=== PATIENT | female | born 1940 | race Caucasian/White ===

== ENCOUNTER 2017-01-21 22:46 | Inpatient (IN) | payer MEDICARE, OTHER ==
[~2017-01-21 22:46] MED LIST: ACETAMINOPHEN325 MG PO; BACTRIM DS TABL1 TAB PO; BUMETANIDE0.5 MG PO; CELEXA20 MG PO; ELIQUIS2.5 MG PO; GLIPIZIDE-METFO1 TA5 PO; GLUCOPHAGE500 MG PO; HYDROCODON-ACE1 EAC7 PO; LISINOPRIL5 MG PO; MIRALAX17 GM PO; MIRAPEX0.5 MG PO; NEURONTIN 300300 MG PO; SALINE NASAL SP45 ML NS; TENORMIN25 MG PO; VANCOMYCIN 1 GM/1 G1 IV
[2017-01-22 01:53] VITALS: BP 209/90; Wt 109.1 kg
[2017-01-22 02:42] LABS: APPEARANCE CLEAR (CLEAR); BILIRUBIN NEGATIVE (NEGATIVE); COLOR STRAW (YELLOW); GLUCOSE NEGATIVE (NEGATIVE); KETONE NEGATIVE (NEGATIVE); LEUKOCYTE ESTERASE NEGATIVE (NEGATIVE); NITRITE NEGATIVE (NEGATIVE); PROTEIN NEGATIVE (NEGATIVE); SPECIFIC GRAVITY 1.005 (1.005-1.020); UROBILINOGEN NORMAL (NORMAL)
--- NOTE | 2017-01-22 06:52 | NUR ---
NEW ADMIT FROM [facility] TO DOCTOR العلي FOR ALTERED MENTAL STATUS. FAMILY STAES MANIC BEHAVIORS AND TALKING IN TONGUE AT TIMES. SPOKE TO PATIENT VIA PHONE AND AGREED TO SIGN INTO INTERMEDIATE. RECEIVED VIA EMS. FAMILY AWARE OF ADMIT. CALM AND COOPERATIVE AT ADMIT. ASSIST TO TRANSFERE TO BED. REMAINS CALM AND COOPERATIVE
[2017-01-22 07:09] LABS: BASOPHILS 0.5 % (0-2); EOSINOPHILS 3.4 % (0-7); HEMATOCRIT 40.6 % (36.0-48.0); HEMOGLOBIN 13.4 g/dL (12-16); IMMATURE GRANULOCYTES 0.6 % (0-5); LYMPHOCYTES 20.1 % (15-50); MCH 31.2 pg (26.0-34.0); MCV 94.6 fL (80.0-100.0); MEAN PLATELET VOLUME 10.5 fL (7.4-10.4); MONOCYTES 9.7 % (2-11); NEUTROPHILS 65.7 % (40-80); RBC 4.29 10x6/uL (4.00-5.40); RDW 14.2 % (11.5-14.5); WBC 10.8 10x3/uL (4.8-10.8)
[2017-01-22 07:17] LABS: HEMOGLOBIN A1C 6.8 % (4.8-6.0)
[2017-01-22 07:26] LABS: PLATELET COUNT 252 10x3/uL (130-400)
[2017-01-22 07:31] LABS: ALBUMIN 3.3 g/dL (3.4-5.0); ANION GAP 10.3 mmol/L (8-16); BILIRUBIN - TOTAL 0.58 mg/dL (0.2-1.3); CALCIUM 9.8 mg/dL (8.5-10.1); CARBON DIOXIDE 29.1 mmol/L (21.0-32.0); CHOL - HDL RATIO 5.4 ratio (2.3-4.1); LDL-HDL RATIO 3.2 ratio (1.5-3.5); POTASSIUM - SERUM 3.4 mmol/L (3.5-5.1); PROTEIN - SERUM 7.2 g/dL (6.4-8.2); THYROID STIMULATING HORMONE 5.08 uIU/mL (0.36-3.74)
--- NOTE | 2017-01-22 09:30 | NUR ---
ORIENTED X 3 SITTING IN HALLWAY IN W/C. CALM AND COOPERATIVE WITH HER ASSESSMENT. DR. MANZO ROUNDING AND TALKING WITH PATIENT. MONITOR FOR SAFETY AND FALL PRECAUTIONS. WILL CONTINUE WITH PLAN OF CARE.
[2017-01-22 09:59] VITALS: BP 191/69
--- NOTE | 2017-01-22 20:57 | NUR ---
RECEIVED IN HALLWAY. SITTING IN WHEELCHAIR. ARGUMENTATIVE WITH STAFF. CALM AND COOPERATIVE WITH STAFF AND ASSESSMENT. ALERT AND ORIENTED. ATTENTION SEEKING. REDIRECT AND REORIENT NEEDED. RESTING IN BED EYES OPEN AT THIS TIME. CONTINUE PLAN OF CARE
[2017-01-23 06:16] LABS: VITAMIN D 25 HYDROXY 19.7 ng/mL (30.0-100.0)
[2017-01-23 08:20] LABS: FOLATE (FOLIC ACID) - SERUM 19.4 ng/mL (>3.0); RAPID PLASMA REAGIN Non Reactive (Non Reactive)
[2017-01-23 09:00] VITALS: BP 176/72
[2017-01-23] MEDS ORDERED: TENORMIN25 MG PO (11:17)
[2017-01-23] MEDS ORDERED: LIPITOR10 MG PO (11:18)
[2017-01-23] MEDS ORDERED: DEPAKOTE SPRIN125 MG PO (11:18)
[2017-01-23] MEDS ORDERED: LISINOPRIL10 MG PO (11:18)
[2017-01-23] MEDS ORDERED: K-DUR20 MEQ PO (11:19)
[2017-01-23] MEDS ORDERED: DITROPAN X5 MG/BOTTL PO (11:19)
--- NOTE | 2017-01-23 11:41 | NUR ---
SW SPOKE WITH PT'S DTR, PANKAJ, ON PT DEMANDING TO LEAVE UNIT WHEN TALKING TO THE MD THIS MORNING. SW EXPLAINED THAT PT SIGNED HERSELF IN AND HAS THE RIGHT TO SIGN HERSELF OUT. SW SET PT UP WITH OUTPATIENT THERAPY REFERRAL. PT'S CAREGIVER ALISHA FUENTES WILL ASSIST HER IN DISCHARGE AND MEET HER AT PT'S HOUSE WHEN SW CONTACTS HER THAT DISCHARGE IS COMPLETE.
--- NOTE | 2017-01-23 13:05 | NUR ---
B) PATIENT HAS REQUESTED TO D/C TODAY TO HOME, FAXED D/C ORDER AND MED LIST TO DR FRENCH, CALLED MEDS TO [facility]. PATIENT REFUSES TO USE HER LEGS TO STAND OR TRANSFER, STAFF ARE USING THE SIT TO STAND AND JOZEF FOR HER. PATIENT HAS BEEN MANIPULATIVE AND DEMANDING WITH STAFF. I) PROVIDE PRESCRIBED MEDS. R) PATIENT IS COMPLIANT WITH MEDS AND UNIT MILIEU. PATIENT IS D/CING HOME. P) CONTINUE D/C PLAN.
--- NOTE | 2017-01-23 15:26 | NUR ---
PATIENT HAS D/C'D FROM THE UNIT, TAXI VOUCHER PROVIDED AND ADDRESS PROVIDED. JON SAM ASSISTED PATIENT TO THE TAXI. ALL BELONGINGS ON THE INVENTORY SHEET ACCOUNTED FOR.
== END 2017-01-23 15:29 | disposition home or self-care (01) | DRG 885 ==
LOC: UNDOADMIN 22:46 → D.PSYCH 22:46
PROVIDERS: ADMIT Psychiatry & Neurology Psychiatry
DX: F33.9 Major depressive disorder, recurrent, unspecified (principal); F41.9 Anxiety disorder, unspecified; I11.0 Hypertensive heart disease with heart failure; I50.9 Heart failure, unspecified; E11.40 Type 2 diabetes mellitus with diabetic neuropathy, unspecified; E78.4 Other hyperlipidemia; N32.81 Overactive bladder; R32 Unspecified urinary incontinence; E03.9 Hypothyroidism, unspecified; E66.9 Obesity, unspecified; G47.33 Obstructive sleep apnea (adult) (pediatric); G25.81 Restless legs syndrome; I25.10 Atherosclerotic heart disease of native coronary artery without angina pectoris; M81.0 Age-related osteoporosis without current pathological fracture

== ENCOUNTER 2017-05-01 18:19 | Observation (INO) | payer MEDICARE, OTHER ==
[~2017-05-01 18:19] MED LIST changes: +DEPAKOTE SPRIN125 MG PO; +DITROPAN X5 MG/BOTTL PO; +K-DUR20 MEQ PO; +LIPITOR10 MG PO; +LISINOPRIL10 MG PO
--- NOTE | 2017-05-02 03:47 | NUR ---
ARRIVED TO FLOOR VIA STRETCHER, ACCOMPANIED BY HOSPITAL STAFF. ATTEMPTED TO TRANSFER TO BED, PT REFUSED TO GET OUT OF BED. STATES SHE CAN NOT BEAR WEIGHT ON HER LEG. ORIENTED TO UNIT, CALL LIGHT IN REACH. WILL CONTINUE TO MONTIOR. SEE NURSE ASSESSMENT.
[2017-05-02 04:00] VITALS: BP 126/57
--- NOTE | 2017-05-02 06:38 | NUR ---
NO CHANGES FROM PREVIOUS ASSESSMENT, CALL LIGHT IN REACH
--- NOTE | 2017-05-02 07:41 | NUR ---
PT SITTING UP IN BED WAITING ON BREAKFAST DENIES NEEDS WILL CONT TO MONITOR
[2017-05-02 07:46] VITALS: BP 155/71
[2017-05-02 12:00] VITALS: BP 111/54
--- NOTE | 2017-05-02 13:53 | NUR ---
EXPLAINED SCD AND THEIR USE. PT REFUSES THEM FOR NOW BUT WANTS TO TRY THEM WHEN SHE GOES TO BED TONIGHT. EXPLAINED RISKS AND BENEFITS.
--- NOTE | 2017-05-02 14:12 | NUR ---
* Is the patient Alert and Oriented? Yes 0 * How many steps to enter\exit or inside your home? 0 0 * PCP Dr. Baird 0 * Pharmacy [facility] 0 * Preadmission Environment Home Alone 0 * ADLs Partial Dependent 0 * Partial ADLs (Assistance needed) Ambulation 0 * Equipment Wheelchair 0 * List name and contact numbers for known caregivers / representatives who currently or will assist patient after discharge: Josep Young [phone] 0 * Additional services required to return to the preadmission environment? Yes 0 * Can the patient safely return to the preadmission environment? Yes 0 * Has this patient been hospitalized within the prior 30 days at any hospital? No Patient Name: ANDREY STEIN Admission Status: ER Accout number: [id number] Admission Date: 05-02-2017 : 1941 Admission Diagnosis: Attending: CAROLANN COMER Current LOS: 1 Planned Disposition: Home with Home Health vs Inpatient Rehab Primary Insurance: MEDICARE A & B Discharge Planning Comments: CM met with patient to assess dc plans/needs. Patient states she lives alone but has become progressively weaker & would like to go to a SNF under her [facility] for therapy. Explained she does not qualify at this time. Discussed inpatient rehab options and home health services. She is interested in both. Order obtained for rehab prescreen. Reviewed list of local home health agencies - [facility] signed for [facility]. If patient is not accepted to rehab, referral will be sent to [facility]. Answered patient questions. CM will follow & assist as needed. Certified Medication Technician: Dilcia Lopez
[2017-05-02 16:11] VITALS: BP 157/70
[2017-05-02 16:34] LABS: BASOPHILS 0.3 % (0-2); EOSINOPHILS 5.4 % (0-7); HEMATOCRIT 40.2 % (36.0-48.0); HEMOGLOBIN 12.9 g/dL (12-16); IMMATURE GRANULOCYTES 0.8 % (0-5); LYMPHOCYTES 23.7 % (15-50); MCH 30.9 pg (26.0-34.0); MCHC 32.1 g/dL (31.0-37.0); MCV 96.2 fL (80.0-100.0); MEAN PLATELET VOLUME 10.9 fL (7.4-10.4); MONOCYTES 8.5 % (2-11); NEUTROPHILS 61.3 % (40-80); PLATELET COUNT 215 10x3/uL (130-400); RBC 4.18 10x6/uL (4.00-5.40); RDW 14.7 % (11.5-14.5); WBC 9.5 10x3/uL (4.8-10.8)
[2017-05-02 16:43] LABS: ANION GAP 11.5 mmol/L (8-16); CALCIUM 10.1 mg/dL (8.5-10.1); CARBON DIOXIDE 29.7 mmol/L (21.0-32.0); POTASSIUM - SERUM 4.2 mmol/L (3.5-5.1)
--- NOTE | 2017-05-02 16:57 | NUR ---
PT SITTING UP IN BED EATING DINNER. DENIES NEEDS.
[2017-05-02 20:00] VITALS: BP 150/69
[2017-05-03] VITALS: BP 138/52
--- NOTE | 2017-05-03 02:20 | NUR ---
LYING IN BED, CALL LIGHT IN REACH. WILL CONTINUE WITH PLAN OF CARE.
[2017-05-03 04:00] VITALS: BP 144/78
[2017-05-03 05:47] LABS: MAGNESIUM - SERUM 1.7 mg/dL (1.8-2.4); PHOSPHOROUS 3.2 mg/dL (2.5-4.9); POTASSIUM - SERUM 4.2 mmol/L (3.5-5.1)
--- NOTE | 2017-05-03 07:45 | NUR ---
PT SITTING UP IN BED DENIES NEEDS OTHER THAN COFFEE. GIVEN. WILL CONT TO MONITOR
[2017-05-03 08:41] VITALS: BP 121/48
--- NOTE | 2017-05-03 11:20 | NUR ---
Rehab Prescreening Consult recieved and the chart has been reviewed. At this time she does not have a qualifying IRF diagnosis, nor has she had any therapy. A PT eval was ordered yesterday but still has not been done. Discussed with the CM Kaitlin Stoddard RN. Jesi Velez RN Clinical Liaison, Rehab
--- NOTE | 2017-05-03 13:55 | NUR ---
Rec'd call from Marivel with [facility] late yesterday afternoon. She states she was working on getting patient admitted to a residential care bed at [facility]. She has been accepted and can transfer today. CM spoke with patient. She is agreeable to go to a marine oil terminal superintendent care bed at [facility]. ARON signed. H&P, Med Rec faxed. Transport van will pick patient up around 1630. Nursing to call report to [phone].
[2017-05-03 13:58] VITALS: BP 123/51
--- NOTE | 2017-05-03 15:52 | NUR ---
CALLED REPORT TO [facility]. THEY ARE SENDING VAN CLOTH CALENDER
--- NOTE | 2017-05-03 16:17 | NUR ---
WENT OVER DC PAPERWORK WITH PT PT VERBALIZES UNDERSTANDING DC PIV WITH CATH TIP INTACT. HELPED PT GET DRESSED AND PACKED. WAITING ON IT OPERATIONS MANAGER TO GET HERE.
--- NOTE | 2017-05-03 16:55 | NUR ---
PT TO THE [facility]
== END 2017-05-03 16:55 ==
LOC: D.ER 18:19 → OBSVTIME 05-02 02:13 → D.M2 05-02 02:13
PROVIDERS: ADMIT Family Medicine
DX: M54.16 Radiculopathy, lumbar region (principal); E11.9 Type 2 diabetes mellitus without complications; I11.0 Hypertensive heart disease with heart failure; I50.9 Heart failure, unspecified; G25.81 Restless legs syndrome; G47.33 Obstructive sleep apnea (adult) (pediatric); I25.10 Atherosclerotic heart disease of native coronary artery without angina pectoris; F32.9 Major depressive disorder, single episode, unspecified; F41.9 Anxiety disorder, unspecified

== ENCOUNTER → 2017-08-06 10:15 | Outpatient (CLI) | payer MEDICARE, OTHER | END | disposition home or self-care (01) | LOC: D.CT 10:15 | DX: M25.512 Pain in left shoulder (principal) ==

== ENCOUNTER 2018-05-20 01:41 | Emergency (ER) | payer MEDICARE, OTHER ==
[~2018-05-20] VITALS: Ht 157.5 cm; Wt 109.1 kg
[2018-05-20 01:48] VITALS: Ht 157.5 cm; Wt 109.1 kg
[2018-05-20 03:18] VITALS: BP 95/63
== END 2018-05-20 03:20 ==
LOC: D.ER 01:41
DX: T14.91XA Suicide attempt, initial encounter (principal); X83.8XXA Intentional self-harm by other specified means, initial encounter; Y93.89 Activity, other specified; Y92.122 Bedroom in nursing home as the place of occurrence of the external cause; E11.9 Type 2 diabetes mellitus without complications; I11.0 Hypertensive heart disease with heart failure

== ENCOUNTER 2018-06-25 08:54 | Inpatient (IN) | payer MEDICARE, MEDICAID ==
[2018-06-25] MEDS ORDERED: ASPIRIN81 MG PO (10:26)
[2018-06-25] MEDS ORDERED: VITAMIN D3400 UNI1 PO (10:28)
[2018-06-25] MEDS ORDERED: GABAPENTIN100 MG PO (10:30)
[2018-06-25] MEDS ORDERED: FISH OIL 1,0001 CA1 PO (10:31)
[2018-06-25 10:32] LABS: APPEARANCE CLEAR (CLEAR); BILIRUBIN NEGATIVE (NEGATIVE); COLOR YELLOW (YELLOW); GLUCOSE NEGATIVE (NEGATIVE); KETONE NEGATIVE (NEGATIVE); NITRITE NEGATIVE (NEGATIVE); PROTEIN NEGATIVE (NEGATIVE); SPECIFIC GRAVITY 1.015 (1.005-1.020); UROBILINOGEN NORMAL (NORMAL)
[2018-06-25] MEDS ORDERED: MYRBETRIQ50 MG PO (10:32)
[2018-06-25] MEDS ORDERED: OMEPRAZOLE20 M1 PO (10:33)
[2018-06-25] MEDS ORDERED: SYNTHROID75 MCG PO (10:34)
[2018-06-25] MEDS ORDERED: ULTRAM50 MG PO (10:35)
[2018-06-25] MEDS ORDERED: ZOLOFT100 MG PO (10:36)
[2018-06-25 11:10] VITALS: BP 119/67; BMI 33.7
[2018-06-25 12:28] LABS: BASOPHILS 0.3 % (0-2); EOSINOPHILS 46.4 % (0-7); HEMATOCRIT 45.4 % (36.0-48.0); HEMOGLOBIN 14.9 g/dL (12-16); IMMATURE GRANULOCYTES 0.5 % (0-5); LYMPHOCYTES 13.6 % (15-50); MCHC 32.8 g/dL (31.0-37.0); MCV 94.6 fL (80.0-100.0); MEAN PLATELET VOLUME 11.2 fL (7.4-10.4); MONOCYTES 3.7 % (2-11); NEUTROPHILS 35.5 % (40-80); RDW 15.2 % (11.5-14.5); WBC 15.4 10x3/uL (4.8-10.8)
[2018-06-25 12:29] LABS: PLATELET COUNT 160 10x3/uL (130-400)
[2018-06-25 13:09] LABS: ALBUMIN 3.5 g/dL (3.4-5.0); ANION GAP 17.6 mmol/L (8-16); BILIRUBIN - TOTAL 0.24 mg/dL (0.2-1.3); CALCIUM 9.3 mg/dL (8.5-10.1); CARBON DIOXIDE 23.5 mmol/L (21.0-32.0); CHOL - HDL RATIO 6.9 ratio (2.3-4.1); CREATININE - SERUM 1.2 mg/dL (0.6-1.3); LDL-HDL RATIO 4.2 ratio (1.5-3.5); POTASSIUM - SERUM 5.1 mmol/L (3.5-5.1); PROTEIN - SERUM 7.6 g/dL (6.4-8.2); THYROID STIMULATING HORMONE 2.7 uIU/mL (0.36-3.74)
[2018-06-25 13:31] VITALS: BMI 33.7
[2018-06-25 19:36] VITALS: BP 108/49
--- NOTE | 2018-06-25 22:39 | NUR ---
B) The patient is awake and alert, she does have bilateral lower extremity redness. She did ask if she is getting her medication mirapex for her restless legs, explained to her that she will be getting neurontin instead as the Dr. d/c'd her mirapex. She said ok after an explanation was provided. I) Provide prescribed meds. R) The patient is compliant with meds. P) Continue POC.
[2018-06-26 07:27] LABS: VITAMIN D 25 HYDROXY 19.3 ng/mL (30.0-100.0)
[2018-06-26 07:49] VITALS: Wt 88.9 kg
[2018-06-26 08:22] LABS: FOLATE (FOLIC ACID) - SERUM 5.1 ng/mL (>3.0); RAPID PLASMA REAGIN Non Reactive (Non Reactive)
--- NOTE | 2018-06-26 08:58 | PSY ---
PATIENT NAME:ANDREY STEIN MEDICAL RECORD: [id number] : 42 LOCATION:JanaRoseyLENIN Ganga ADMISSION DATE: 06/25/18 ACCOUNT: [id number] PSYCHIATRIC EVALUATION DATE OF EVALUATION: 06/25/18 IDENTIFYING DATA: The patient is 77 years old and she is admitted to the hospital on a voluntary basis. CHIEF COMPLAINT: Homicidal threats. HISTORY OF PRESENT ILLNESS: The patient lives in the [facility]. She has been there for over a year. She became angry with her roommate and threatened to kill her. She denies this. She also apparently took a sheet or pillowcase and wrapped it around her head and threatened to kill herself. She admits this, but says it was months ago, when in actuality it was very recent. The staff at the correction feel that she is a potential danger to herself or others and they are asking for evaluation and treatment. The patient does endorse numerous neurovegetative depressive symptoms and indeed is quite tearful. When asked about why the staff at the correction would tell a lie about her wanting to hurt someone else, she is tearful and says she does not know why they would do such a thing. She also says she wants to go back there. Although, she is complaining bitterly about the staff and her roommate. When asked to explain why she would want to live some place where she is apparently so unhappy, she cannot. Again, she is endorsing lots of neurovegetative depressive symptoms and does indeed admit to being depressed, but denies that she would seek to harm herself or others. PAST MEDICAL HISTORY: Significant for diabetes, hypertension, congestive heart failure, coronary artery disease, hypothyroidism, peripheral neuropathy, osteoarthritis and a failed right knee replacement. PAST PSYCHIATRIC HISTORY: Significant for one hospitalization here in January of 2017. At that time, she was depressed and suicidal. FAMILY HISTORY: Noncontributory. ALLERGIES: SULFUR AND MORPHINE. CURRENT MEDICATIONS: Include Prilosec, Synthroid, potassium, Bumex, Ultram, Zoloft, Neurontin, Tylenol, aspirin, Zestril, Tenormin, fish oil, magnesium, and a combination pill of metformin and glipizide. SOCIAL HISTORY: The patient is . Her second about 4 years ago. She has 3 adult children. A son and a daughter who live locally and then a son who lives in [place]. She has no history of drug or alcohol abuse. She moved here from [place] in the mid 1960s. 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 MENTAL STATUS EXAMINATION: The patient is awake, alert and oriented to person, place, time and situation. Her mood is depressed. Her affect is labile. Her thought processes are generally goal directed. Her memory, concentration, and abstraction abilities are mildly impaired. She denies any active intent to harm herself or others as well as any overt psychotic symptoms. ASSETS: Supportive family members. LIABILITIES: Limited insight. DIAGNOSTIC IMPRESSION: AXIS I: Major depression, moderate severity without psychotic features. AXIS II: Deferred. AXIS III: Diabetes, hypertension, coronary artery disease, congestive heart failure, hypothyroidism, peripheral neuropathy, osteoarthritis, and a failed right knee replacement. AXIS IV: Moderate stressors. AXIS V: Global assessment of functioning is 35. PLAN: At this time, the patient is admitted to the hospital for a comprehensive medical, psychological, and social evaluation. She will be treated with both mood stabilizing and memory enhancing medications. Her long-term prognosis is guarded. TRANSINT:[id number] Voice Confirmation ID: [id number] DOCUMENT ID: [id number] DARYL ZUNIGA MD at 0858 CC: [id number] DICTATION DATE: 06/25/18 1209 PERFORMANCE SPECIALIST: 06/25/18 1226 [facility] [address] [address] [place] [address]
[2018-06-26 09:50] VITALS: BP 111/56
--- NOTE | 2018-06-26 18:01 | NUR ---
ORIENTED X 3.COMPLIANT WITH STAFF AND MEDS.PROPELLS SELF IN WHEELCHAIR.WILL CONTINUE WITH PLAN OF CARE,MONITOR FOR CHANGES AND SAFETY.
[2018-06-26 20:00] VITALS: BP 118/49
--- NOTE | 2018-06-27 03:37 | NUR ---
B) Patient is alert and oriented X 3, attention seeking at times, patient can do more for herself than she does, I) Administered scheduled medications as ordered, encouraged independance R) Mediation compliant, sleeping quietly in her bed, P) Continue plan of care.
[2018-06-27 11:16] VITALS: BP 104/53
--- NOTE | 2018-06-27 12:17 | PN ---
PATIENT:ANDREY STEIN MEDICAL RECORD: [id number] LOCATION:JanaFEDERICORanjith StephenKassandra ADMISSION DATE: 06/25/18 PROGRESS NOTE DATE OF SERVICE: 06/26/2018 SUBJECTIVE: The patient's case was discussed with staff. She has no new complaint. OBJECTIVE: The patient is in good behavioral control, although she is quite tearful. She endorses a lot of neurovegetative depressive symptoms, but then reluctantly will say that she does not really think she is very depressed. She has been without any aggressive or psychotic symptoms. She insists that she will not try to hurt anyone. With regards to what was said at the [facility] about her making the homicidal and suicidal threats, she emphatically denies it. She has no explanation as to why the [facility] would have made such an allegation against her. She feels that it is not a truthful statement, but she cannot tell me any reasons why it may have been made. TRANSINT:[id number] Voice Confirmation ID: [id number] DOCUMENT ID: [id number] DARYL ZUNIGA MD at 1217 CC: [id number] DICTATION DATE: 06/26/18 1201 PLATE GRAINER: 06/26/18 1331 ADM IN [address] [address] [place] [address]
--- NOTE | 2018-06-27 13:41 | NUR ---
B) The patient is awake and alert, she does speak negatively about everything. She has many somatic complaints. She self propels in her w/c, she can stand to transfer only. I) Provide prescribed meds. Redirect to unit milieu. R) She is compliant with meds. She denies S.I. today. P) Continue POC.
[2018-06-27 20:08] VITALS: BP 101/62
--- NOTE | 2018-06-28 05:31 | NUR ---
ativan po 0.5 given on 06/27/18 at 2330 for anxiety, tearful, patient restless.
--- NOTE | 2018-06-28 05:32 | NUR ---
patient has been awake off and on throughout the night. no more tearful episodes
[2018-06-28 06:57] LABS: BASOPHILS 0.4 % (0-2); EOSINOPHILS 29.2 % (0-7); HEMATOCRIT 38.9 % (36.0-48.0); HEMOGLOBIN 12.7 g/dL (12-16); IMMATURE GRANULOCYTES 0.5 % (0-5); MCH 30.3 pg (26.0-34.0); MCHC 32.6 g/dL (31.0-37.0); MCV 92.8 fL (80.0-100.0); MEAN PLATELET VOLUME 10.8 fL (7.4-10.4); MONOCYTES 6.5 % (2-11); NEUTROPHILS 46.4 % (40-80); PLATELET COUNT 165 10x3/uL (130-400); RBC 4.19 10x6/uL (4.00-5.40); WBC 13.8 10x3/uL (4.8-10.8)
--- NOTE | 2018-06-28 07:30 | NUR ---
B) PT IS ALERT AND ORIENTED TO PERSON. SPEAKS NEGATIVELY ABOUT EVERYTHING. SELF PROPELS IN HER W/C. STANDS TO TRANSFER ONLY. I) PROVIDE PRESCRIBED MEDS R) MED COMPLIANT P) CPOC
[2018-06-28 08:43] VITALS: BP 112/84
--- NOTE | 2018-06-28 12:33 | PN ---
PATIENT:ANDREY STEIN MEDICAL RECORD: [id number] LOCATION:FABIEN BatesRoseyKassandra ADMISSION DATE: 06/25/18 PROGRESS NOTE DATE OF SERVICE: 06/27/2018 SUBJECTIVE: The patient's case was discussed with staff. She has no new complaint. OBJECTIVE: The patient denies that she would seek to harm herself or others. She has been in good behavioral control, but is tearful today. ASSESSMENT: No change in diagnoses. PLAN: The patient will have her Zoloft discontinued. I am going to start her on Effexor tomorrow. Her long-term prognosis is guarded. TRANSINT:[id number] Voice Confirmation ID: [id number] DOCUMENT ID: [id number] DARYL ZUNIGA MD at 1233 CC: [id number] DICTATION DATE: 06/27/18 1305 LIPCOAT SPRAYER: 06/27/18 1425 ADM IN [facility] [address] [place] [address]
[2018-06-28 19:49] VITALS: BP 147/66
[2018-06-29 07:00] VITALS: BP 141/63
--- NOTE | 2018-06-29 07:40 | NUR ---
B) PT IS ALERT AND ORIENTED X 4. SELF PROPELS HER SELF IN W/C. CAN TRANSFER TO BATHROOM AND TO BED. I) PROVIDED PRESCRIBED MEDS R) MED COMPLIANT P) CPOC
--- NOTE | 2018-06-29 11:30 | PN ---
PATIENT:ANDREY STEIN MEDICAL RECORD: [id number] LOCATION:FABIEN StephenKassandra ADMISSION DATE: 06/25/18 PROGRESS NOTE DATE OF SERVICE: 06/28/2018 SUBJECTIVE: The patient's case was discussed with staff. She has no new complaint. OBJECTIVE: The patient has received her first dose of Effexor and tolerated it well. She is not eating well at all, only about 25% of the food that she was presented was consumed. I believe this is related to her depression, and although in the halfway this is not enough to sustain her well-being. In the short run, it is probably not too much of an issue since she is about 70 pounds overweight. In addition to this, she did not sleep very well and does complain about that. I have reviewed her medications and I will increase the dose of her Effexor slightly. In addition to that, I am going to start her on trazodone to assist with sleep consolidation. TRANSINT:[id number] Voice Confirmation ID: [id number] DOCUMENT ID: [id number] DARYL ZUNIGA MD at 1130 CC: [id number] DICTATION DATE: 06/28/18 1302 EXTRACT OPERATOR: 06/28/18 1729 ADM IN [address] [address] [place] [address]
[2018-06-29 12:12] LABS: APPEARANCE CLEAR (CLEAR); BILIRUBIN NEGATIVE (NEGATIVE); COLOR YELLOW (YELLOW); GLUCOSE NEGATIVE (NEGATIVE); KETONE NEGATIVE (NEGATIVE); NITRITE NEGATIVE (NEGATIVE); PROTEIN NEGATIVE (NEGATIVE); SPECIFIC GRAVITY 1.015 (1.005-1.020); UROBILINOGEN NORMAL (NORMAL)
[2018-06-29 20:27] VITALS: BP 157/68
--- NOTE | 2018-06-29 21:44 | NUR ---
B- PATIENT IS CALM AND PLEASANT THIS EVENING. NOT MANY REQUESTS. PATIENT IS BEING PATIENT. I- MEDS GIVEN ORDERED R- NO ADVERSE REACTION NOTED P- WILL CONTINUE TO FOLLOW POC
[2018-06-30 07:00] VITALS: BP 119/53
--- NOTE | 2018-06-30 12:09 | NUR ---
B) PT IS ALERT AND ORIENTED X 4. SELF PROPELS IN W/C. TRANSFERS SELF TO BATHROOM AND BED. TEARFUL AT TIMES. I) PROVIDE PRESCRIBED MEDS R) MED COMPLIANT P) CPOC
--- NOTE | 2018-06-30 13:53 | PN ---
PATIENT:ANDREY STEIN MEDICAL RECORD: [id number] LOCATION:ИВАНRanjith JanaRoseyKassandra ADMISSION DATE: 06/25/18 PROGRESS NOTE DATE OF SERVICE: 06/29/2018 SUBJECTIVE: The patient's case was discussed with staff. She has no new complaint. OBJECTIVE: The patient denies intent to harm herself or others. She generally tolerates her medicines well. She is significantly calmer today. ASSESSMENT: No change in diagnoses. PLAN: The patient will be given Effexor at a slightly higher dose. Her long-term prognosis is guarded. TRANSINT:[id number] Voice Confirmation ID: [id number] DOCUMENT ID: [id number] DARYL ZUNIGA MD at 1353 CC: [id number] DICTATION DATE: 06/29/18 1143 RESISTOR TESTING MACHINE OPERATOR: 06/29/18 1217 ADM IN [address] [place] [address]
[2018-06-30 17:05] LABS: BASOPHILS 0.6 % (0-2); EOSINOPHILS 24.8 % (0-7); HEMOGLOBIN 12.4 g/dL (12-16); IMMATURE GRANULOCYTES 0.6 % (0-5); LYMPHOCYTES 18.8 % (15-50); MCH 30.4 pg (26.0-34.0); MCHC 31.8 g/dL (31.0-37.0); MCV 95.6 fL (80.0-100.0); MEAN PLATELET VOLUME 11.5 fL (7.4-10.4); MONOCYTES 8.1 % (2-11); NEUTROPHILS 47.1 % (40-80); PLATELET COUNT 159 10x3/uL (130-400); RBC 4.08 10x6/uL (4.00-5.40); RDW 15.6 % (11.5-14.5); WBC 10.5 10x3/uL (4.8-10.8)
[2018-06-30 17:24] LABS: ALBUMIN 3.1 g/dL (3.4-5.0); ANION GAP 11.9 mmol/L (8-16); BILIRUBIN - TOTAL 0.32 mg/dL (0.2-1.3); CALCIUM 9.1 mg/dL (8.5-10.1); CARBON DIOXIDE 28.6 mmol/L (21.0-32.0); CREATININE - SERUM 1.3 mg/dL (0.6-1.3); POTASSIUM - SERUM 3.5 mmol/L (3.5-5.1); PROTEIN - SERUM 6.7 g/dL (6.4-8.2)
--- NOTE | 2018-06-30 21:01 | NUR ---
RECEIVED IN BEDROOM. SITTING IN A WHEELCHAIR AT BEDSIDE. ASSIST TO BED. CALM AND COOPERATIVE WITH CARE AND ASSESSMENT. NO STATEMENTS OF SELF HARM MADE THIS EVENING. ENCOURAGE TO EXPRESS NEEDS. RESTING IN BED WITH EYES CLOSED AT THIS TIME. CONTINUE PLAN OF CARE
[2018-06-30 23:50] VITALS: BP 149/58
[2018-07-01 08:00] VITALS: BP 103/69
--- NOTE | 2018-07-01 08:00 | NUR ---
B) PT IS ALERT AND ORIENTED X 4. TEARFUL OFTEN. CALM AND COOPERATIVE WITH ASSESSMENT. I) PRESCRIBED MEDS GIVEN ORDERED R) MED COMPLIANT P) CPOC
--- NOTE | 2018-07-01 09:45 | PN ---
PATIENT:ANDREY STEIN MEDICAL RECORD: [id number] LOCATION:FABIEN Jerez ADMISSION DATE: 06/25/18 PROGRESS NOTE DATE OF SERVICE: 06/30/2018 SUBJECTIVE: The patient's case was discussed with staff. She has no new complaint. OBJECTIVE: The patient denies intent to harm herself or others. She generally tolerates her medicines well. ASSESSMENT: No change in diagnoses. PLAN: I anticipate the patient can be transitioned back to the group home soon. If this level of improvement is maintained, I would see no problem with that. Unfortunately, we are also waiting for the office of long-term care to give approval. TRANSINT:[id number] Voice Confirmation ID: [id number] DOCUMENT ID: [id number] DARYL ZUNIGA MD at 0945 CC: [id number] DICTATION DATE: 06/30/18 1414 GEOTHERMAL PRODUCTION MANAGER: 06/30/18 1516 ADM IN [facility] [address] [place] [address]
--- NOTE | 2018-07-01 11:52 | NUR ---
Nutrition Follow Up: Chart reviewed. Pt is eating 61% meal avg on a regular diet. +BM 06/26/18 - no BM x 5 days. Labs reviewed. Meds noted including Bumex. Rec continue current diet. Will continue to honor food preferences and provide supplements prn. RD following.
[2018-07-01 18:57] LABS: CALCIUM 9.3 mg/dL (8.5-10.1); CARBON DIOXIDE 26.8 mmol/L (21.0-32.0); CREATININE - SERUM 1.3 mg/dL (0.6-1.3); POTASSIUM - SERUM 3.8 mmol/L (3.5-5.1); THYROID STIMULATING HORMONE 3.59 uIU/mL (0.36-3.74)
[2018-07-01 19:45] VITALS: BP 112/57
--- NOTE | 2018-07-01 22:36 | NUR ---
RECEIVED IN DAYROOM. RESTING QUIETLY IN A WHEELCHAIR WITH PEERS AT HER SIDE. CALM AND COOPERATIVE WITH CARE AND ASSESSMENT. NO STATEMENTS OF SELF HARM MADE. ENCOURAGE TO EXPRESS NEEDS. RESTINGIN BED WITH EYES CLOSED AT THIS TIME. CONTINUE PLAN OF CARE
--- NOTE | 2018-07-02 09:10 | PN ---
PATIENT:ANDREY STEIN MEDICAL RECORD: [id number] LOCATION:FABIEN BatesRoseyKassandra ADMISSION DATE: 06/25/18 PROGRESS NOTE DATE OF SERVICE: 07/01/2018 SUBJECTIVE: The patient's case was discussed with staff. She has no new complaint. OBJECTIVE: The patient has a depressed mood, but she has improved. She is no longer making any aggressive statements and the Geodon seems to have really helped organize her thought processes. She is sleeping and eating adequately. ASSESSMENT: No change in diagnoses. PLAN: The office of long-term care has not approved her for transfer to the senior care. I thought that would be something that was pending, but as it turns out, they want to perform a level 2 evaluation, which will not take place for at least another day or two. I am going to tell her this when I see her again. I am concerned that she is going to become very distressed given the fact that she is so anxious to go back to the senior care and was told that the decision from the state was pending, but now they have decided they want to do a [id number] evaluation. TRANSINT:[id number] Voice Confirmation ID: [id number] DOCUMENT ID: [id number] DARYL ZUNIGA MD at 0910 CC: [id number] DICTATION DATE: 07/01/18 1401 CHARGE ACCOUNTS AUDIT CLERK: 07/01/18 1451 ADM IN [facility] [address] [id number]
--- NOTE | 2018-07-02 10:00 | NUR ---
RECEIVED PATIENT IN DINING ROOM FOR B'FAST, ALERT, ORIENTED, CALM, NO SUICIDAL STATEMENTS NOTED. MEDS ADMIN PER ORDERS WITH COMPLETE MED COMPLIANCE NOTED. COOPERATIVE WITH GROUP AND STAFF REQUESTS. CONT POC INCLUDING MEDS AND GROUP THERAPY, MONITORING FOR SUICIDAL IDEATIONS.
[2018-07-02 10:21] VITALS: BP 129/50
[2018-07-02 19:41] VITALS: BP 133/54
--- NOTE | 2018-07-02 21:25 | NUR ---
RECEIVED IN BEDROOM. ASSIT TO TRANSFERE TO BED. CALM AND COOPERATIVE WITH CARE AND ASSESSMENT. NO STATEMENTS OF SELF HARM MADE THIS EVENING. ENCOURAGE TO EXPRESS NEEDS. RESTING IN BED EYES CLOSED AT THIS TIME. CONTINUE PLAN OF CARE
--- NOTE | 2018-07-03 10:14 | NUR ---
B) The patient can be attention seeking, she denies any suicidal ideations and she has not made any comment about killing her room mate. She self propels in a w/c and needs stand by assist with transfers, but she does not walk. I) Provide prescribed meds and encourage group participation to verbalize her thoughts and feelings. R) The patient is compliant with meds and she is reading the newspaper currently. P) Continue POC.
--- NOTE | 2018-07-03 12:29 | PN ---
PATIENT:ANDREY STEIN MEDICAL RECORD: [id number] LOCATION:FABIEN StephenKassandra ADMISSION DATE: 06/25/18 PROGRESS NOTE DATE OF SERVICE: 07/02/2018 SUBJECTIVE: The patient's case was discussed with staff. She has no new complaint. OBJECTIVE: The patient is in good behavioral control with limited insight about her condition. She tolerates her medicines well. She has no thoughts of harming herself or others. ASSESSMENT: No change in diagnoses. PLAN: The [place] is [place] [facility] I am not sure when that will happen, but she cannot be transitioned back to the shelter without their approval. TRANSINT:[id number] Voice Confirmation ID: [id number] DOCUMENT ID: [id number] DARYL ZUNIGA MD at 1229 CC: [id number] DICTATION DATE: 07/02/18 0928 DIESEL TRUCK DRIVER: 07/02/18 1145 ADM IN [id number] [place] [address]
[2018-07-03 20:00] VITALS: BP 126/81
--- NOTE | 2018-07-04 01:52 | NUR ---
B) patient is alert and oriented to person and place, calm and cooperative this shift, attention seeking at times, intrusive at times, I) Administered scheduled medications as ordered, monitored for safety R) Mediation compliant, follow unit milieu P) Continue plan of care.
--- NOTE | 2018-07-04 08:01 | NUR ---
B) The patient is awake and she is alert, she is pleasant and she said "Today is going to be a good day." I) Provide prescribed meds. R) She is compliant with meds. She denies S. I. or H. I. today. P) Continue POC.
[2018-07-04 09:46] VITALS: BP 146/59
--- NOTE | 2018-07-04 12:55 | PN ---
PATIENT:ANDREY STEIN MEDICAL RECORD: [id number] LOCATION:FABIEN BatesRoseyKassandra ADMISSION DATE: 06/25/18 PROGRESS NOTE DATE OF SERVICE: 07/03/2018 SUBJECTIVE: The patient's case was discussed with staff. She has no new complaint. OBJECTIVE: The patient has no thoughts of harming herself or others. She denies psychotic symptoms and is showing a mood that is depressed and an affect that is constricted. Thought processes are disorganized. ASSESSMENT: No change in diagnoses. PLAN: Current medicines have been reviewed and will be maintained. Long-term prognosis is guarded. TRANSINT:[id number] Voice Confirmation ID: [id number] DOCUMENT ID: [id number] DARYL ZUNIGA MD at 1255 CC: [id number] DICTATION DATE: 07/03/18 1253 SENIOR SAS DEVELOPER: 07/03/18 1409 ADM IN [place] [id number] [place] [id number]
[2018-07-04 19:52] VITALS: BP 110/57
--- NOTE | 2018-07-05 02:45 | NUR ---
B) Patient is alert and oriented to person, and place, calm and cooperative this shift, intrusive at times, I) Administered scheduled medications as ordered, monitored for safety R) Mediation compliant, resting quietly in her bed now, P) Continue plan of care.
--- NOTE | 2018-07-05 07:47 | NUR ---
B) The patient is awake and she is pleasant this am. She is calm and she is saying that she is going to have a good day, she is a bit nosy and wants to know everything that is going on with other patients. She likes to converse with the men. I) Provide prescribed meds. Redirect as needed. R) The patient is compliant with meds. P) Continue POC.
--- NOTE | 2018-07-05 08:46 | PN ---
PATIENT:ANDREY STEIN MEDICAL RECORD: [id number] LOCATION:[facility]assandra ADMISSION DATE: 06/25/18 PROGRESS NOTE DATE OF SERVICE: 07/04/2018 SUBJECTIVE: The patient's case was discussed with staff. She has no new complaint. OBJECTIVE: The patient denies intent to harm herself or others. She generally tolerates her medicines well. ASSESSMENT: No change in diagnoses. PLAN: Current medicines have been reviewed and will be maintained. Her long-term prognosis is guarded. Supportive and educational interventions were made. TRANSINT:[id number] Voice Confirmation ID: [id number] DOCUMENT ID: [id number] DARYL ZUNIGA MD at 0846 CC: [id number] DICTATION DATE: 07/04/18 1326 USER EXPERIENCE DEVELOPER: 07/04/[address] [facility] [address] [place] [address]
[2018-07-05 09:51] VITALS: BP 121/56
[2018-07-05 10:10] VITALS: BP 121/56
--- NOTE | 2018-07-05 16:44 | NUR ---
FAMILY HERE TO VISIT PATIENT.
[2018-07-05 19:00] VITALS: BP 130/60
--- NOTE | 2018-07-06 04:02 | NUR ---
B) patient is alert and oriented to person, place and time, calm and cooperative this shift, I) Administered scheduled medications as ordered, monitored for safety R) medication compliant, social with peers, P) Continue plan of care.
[2018-07-06 07:00] VITALS: BP 148/72
--- NOTE | 2018-07-06 07:30 | NUR ---
B) pt is alert and oriented x 4. calm and cooperative with assessment. pt is very pleasant. no aggression noted. I) provide prescribed meds R) med compliant P) cpoc
--- NOTE | 2018-07-06 11:30 | PN ---
PATIENT:ANDREY STEIN MEDICAL RECORD: [id number] LOCATION:[facility]IC[facility] StephenKassandra ADMISSION DATE: 06/25/18 PROGRESS NOTE DATE OF SERVICE: 07/05/2018 SUBJECTIVE: The patient's case was discussed with staff. She has no new complaint. OBJECTIVE: The patient denies intent to harm herself or others. She is tolerating her medicines well. She is in good behavioral control. ASSESSMENT: No change in diagnoses. PLAN: The patient will be transitioned back to the [facility] as soon as the office of long-term care gives us approval to do so. She was evaluated by one of the field auditors yesterday and I doubt there will be any information returned to us Saturday, but if it is, then I will be free to return her to the [facility]. TRANSINT:[id number] Voice Confirmation ID: [id number] DOCUMENT ID: [id number] DARYL ZUNIGA MD at 1130 CC: [id number] DICTATION DATE: 07/05/18 1010 OPTHALMIC TECH: 07/05/18 1206 ADM IN [facility] [address] [place] [address]
[2018-07-06 20:12] VITALS: BP 142/63
--- NOTE | 2018-07-06 21:54 | NUR ---
PATIENT IS NOT VERY PATIENT AT TIMES, COMPLIANT WITH MEDS, NO ADVERSE REACTIONS NOTED. WILL FOLLOW POC
[2018-07-07 07:00] VITALS: BP 152/66
--- NOTE | 2018-07-07 07:30 | NUR ---
B) PT IS ALERT AND ORIENTED X 4. CALM AND COOPERATIVE WITH ASSESSMENT. NO AGGRESSION OR SI NOTED. I) PROVIDE PRESCRIBED MEDS R) MED COMPLIANT P) CPOC
--- NOTE | 2018-07-07 09:41 | PN ---
PATIENT:ANDREY STEIN MEDICAL RECORD: [id number] LOCATION:FABIEN Jerez ADMISSION DATE: 06/25/18 PROGRESS NOTE DATE OF SERVICE: 07/06/2018 SUBJECTIVE: The patient's case was discussed with staff. She has no new complaint. OBJECTIVE: The patient is in good behavioral control with poor insight about her condition. She says now that she is not going to go back to the half-way that she is going to get her own apartment. She has a newspaper out circling for rent adds with a crayon. She insists that she can manage her own care, even though she has lived in a half-way for a long time. ASSESSMENT: No change in diagnoses. PLAN: Brief supportive and educational interventions were made with little result. TRANSINT:[id number] Voice Confirmation ID: [id number] DOCUMENT ID: [id number] DARYL ZUNIGA MD at 0941 CC: [id number] DICTATION DATE: 07/06/18 1141 DISABILITY RATER: 07/06/18 1540 ADM IN [place] [id number] [place] [address]
--- NOTE | 2018-07-07 21:15 | NUR ---
PATIENT IS "NEEDY" GETS UPSET EASILY, WANTS THINGS "NOW". COMPLIANT WITH MEDS. NO ADVERSE REACTION NOTED. WILL FOLLOW POC
[2018-07-08 08:00] VITALS: BP 153/61
--- NOTE | 2018-07-08 09:43 | PN ---
PATIENT:ANDREY STEIN MEDICAL RECORD: [id number] LOCATION:[facility] StephenKassandra ADMISSION DATE: 06/25/18 PROGRESS NOTE DATE OF SERVICE: 07/07/2018 SUBJECTIVE: The patient's case was discussed with staff. She has no new complaint. OBJECTIVE: The patient denies intent to harm herself or others. She is tolerating her medicines well. Eye contact is fair. ASSESSMENT: No change in diagnoses. PLAN: Brief supportive and educational interventions were made. The patient will be maintained on current medicines. TRANSINT:[id number] Voice Confirmation ID: [id number] DOCUMENT ID: [id number] DARYL ZUNIGA MD at 0943 CC: [id number] DICTATION DATE: 07/07/18 1036 TAIL PULLER: 07/07/18 1109 ADM IN [place] [address] [place] [address]
--- NOTE | 2018-07-08 10:37 | NUR ---
RECEIVED PATIENT IN DINING ROOM FOR B'FAST, ALERT, CALM, COOPERATIVE. MEDS ADMIN PER ORDERS WITH COMPLETE MED COMPLIANCE NOTED. COOPERATIVE WITH GROUP AND STAFF REQUESTS. CONT POC INCLUDING MEDS AND GROUP THERAPY DIRECTED.
[2018-07-08 21:00] VITALS: BP 125/52
--- NOTE | 2018-07-08 22:51 | NUR ---
B) Patient is alert and oriented to person, place and time, calm and cooperative , social with other patients, I) Administered scheduled medications as ordered, redirected as needed, R) Mediation compliant, sleeping in her bed now, P) Continue plan of care.
[2018-07-09 08:00] VITALS: BP 148/46
--- NOTE | 2018-07-09 10:02 | NUR ---
RECEIVED PATIENT IN DINING ROOM FOR BREAKFAST, ALERT, CALM, COOPERATIVE, NO SUICIDAL OR HOMICIDAL IDEATIONS NOTED. STILL DEMANDING AT TIMES. MEDS ADMIN PER ORDERS, TAKES MEDS WHOLE WITHOUT DIFFICULTY. COOPERATIVE WITH GROUP ACTIVITIES. CONT POC INCLUDING MEDS AND GROUP THERAPY DIRECTED.
--- NOTE | 2018-07-09 11:04 | NUR ---
Nutrition Follow Up: Diet: Regular PO Intake: 100% meal avg BM: 07/08/18 Meds noted including Bumex Labs reviewed Rec continue current diet. RD following.
--- NOTE | 2018-07-09 15:07 | PN ---
PATIENT:ANDREY STEIN MEDICAL RECORD: [id number] LOCATION:FABIEN StephenKassandra ADMISSION DATE: 06/25/18 PROGRESS NOTE DATE OF SERVICE: 07/08/2018 SUBJECTIVE: The patient's case was discussed with staff. She has no new complaint. OBJECTIVE: The patient is in good behavioral control with limited insight about her condition. She has not been openly aggressive nor has she made any threats to harm herself or others. ASSESSMENT: No change in diagnoses. PLAN: Current medicines and therapies have been reviewed and will be maintained. Long-term prognosis is guarded. TRANSINT:[id number] Voice Confirmation ID: [id number] DOCUMENT ID: [id number] DARYL ZUNIGA MD at 1507 CC: [id number] DICTATION DATE: 07/08/18 1002 SMALL ARMS REPAIRER: 07/08/18 1017 ADM IN [place] [id number] [place] [id number]
--- NOTE | 2018-07-09 18:45 | NUR ---
PATIENT TALKING ON PHONE IN DAYROOM. PATIENT OVERHEARD TELLING THE CALLER THAT THE STAFF HAD PLACED HER ON THE BEDPAN THE NIGHT BEFORE AND AFTER SHE HAD FINISHED VOIDING, THE STAFF MEMBER POURED THE CONTENTS OF THE BEDPAN ONTO HER BED AND LEFT THE ROOM LEAVING PATIENT LYING IN A WET BED. OBVIOUSLY THIS IS UNTRUE.
[2018-07-09 20:23] VITALS: BP 120/58
--- NOTE | 2018-07-10 02:48 | NUR ---
B) patient is alert and oriented to person, place and time, social with staff and peers, I) Administyered scheduled medications as ordered, monitored for safety R) mediatiopn compliant, pleasant and friendly P) Continue plan of care.
--- NOTE | 2018-07-10 10:00 | NUR ---
RECEIVED PATIENT IN DINING ROOM FOR B'FAST, APPETITE GOOD, FEEDS SELF, ALERT, CALM, COOPERATIVE, HOWEVER OCCASIONALLY MAKES FALSE STATEMENTS TO OTHERS. REQUIRES OCCASIONAL RE-DIRECTION FOR INAPPROPRIATE TOUCHING OF MALE PATIENT. MEDS ADMIN PER ORDERS WITH COMPLETE MED COMPLIANCE NOTED. NO S/S ADVERSE REACTION TO MEDS. COOPERATIVE WITH GROUP AND STAFF REQUESTS, ALTHOUGH IS ARGUMENTATIVE AND BELLIGERANT AT TIMES. CONT POC INCLUDING MEDS AND GROUP THERAPY DIRECTED.
[2018-07-10 10:19] VITALS: BP 133/60
--- NOTE | 2018-07-10 13:08 | NUR ---
PATIENT HAVING TEARFUL EPISODE IN THE HALLWAY. STATED THAT SHE WAS CRYING BECAUSE SHE WANTED TO GO HOME. PATIENT WAS CONSOLABLE, HOWEVER, WHEN SHE WAS ASSURED THAT SHE WOULD LIKELY GO BACK TO THE [facility].
--- NOTE | 2018-07-10 14:21 | PN ---
PATIENT:ANDREY STEIN MEDICAL RECORD: [id number] LOCATION:FABIEN Jerez ADMISSION DATE: 06/25/18 PROGRESS NOTE DATE OF SERVICE: 07/09/2018 SUBJECTIVE: The patient's case was discussed with staff. She has no new complaint. The patient denies any thoughts of harming herself or others. Her mood is euthymic. She is oriented fully. ASSESSMENT: No change in diagnoses. PLAN: The patient does not have approval from the office of long-term care. I can discharge her, but the [facility] cannot take her without that approval. She has nowhere else to go and no family members that will accept her including her daughter who has said flatly no, she cannot come live with her. The patient cannot live by herself. The field aide from the office of long-term care has seen her and indicated this will not be a problem, but it is now one day after the Wil holiday and 3:30 in the afternoon and we still do not have any word from them. Obviously, she cannot be discharged today because it is now getting to be too late in the afternoon to arrange transportation with the [facility]. I am hopeful that we will have information from them tomorrow. I did see her and do not see any evidence of acute or direct dangerousness. I have reviewed her current medicines. 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 She continues to be inappropriate in the hospital, inserting herself into the care of other patients when it is not appropriate and then being a little indignant that we are not taking her advice. I am hopeful that she will be discharged tomorrow. TRANSINT:[id number] Voice Confirmation ID: [id number] DOCUMENT ID: [id number] DARYL ZUNIGA MD at 1421 CC: [id number] DICTATION DATE: 07/09/18 1530 BRAKE LININGS COATER: 07/09/18 1657 ADM IN [facility] [address] [place] [address]
[2018-07-10] MEDS ORDERED: LIPITOR20 MG PO (14:41)
[2018-07-10] MEDS ORDERED: MIRAPEX0.125 MG PO (14:42)
[2018-07-10] MEDS ORDERED: EFFEXOR37.5 MG PO (14:42)
[2018-07-10] MEDS ORDERED: GEODON20 MG PO (14:42)
[2018-07-10] MEDS ORDERED: DESERYL50 M2 PO (14:42)
[2018-07-10] MEDS ORDERED: FLORAJEN3 CAPS460 MG PO (14:43)
[2018-07-10] MEDS ORDERED: CALMOSEPTINE OI71 GM TOPICAL (14:43)
[2018-07-10] MEDS ORDERED: LIDODERM 5 %1 PATCH TRANSDERM (14:43)
[2018-07-10] MEDS ORDERED: VITAMIN D5000 UNIT PO (14:44)
--- NOTE | 2018-07-10 16:15 | NUR ---
DHAVAL MET WITH PT'S DTR, CHIP, TO DISCUSS DISCHARGE TOMORROW. SHE STATED SHE IS EXCITED FOR HER MOTHER TO BE GOING BACK TO THE [facility]. CHIP VOICED UNDERSTANDING OF DISCUSSION.
[2018-07-10 20:05] VITALS: BP 130/68
--- NOTE | 2018-07-10 21:02 | NUR ---
RECEIVED IN DAYROOM. IN GOOD SPIRITS. SITTING IN A WHEELCHAIR SOCIALIZING WITH STAFF. CALM AND COOPERATIVE WITH CARE AND ASSESSMENT. NO STATEMENTS OF SELF HARM MADE THIS PM. CONTINUES TO SIT WITH STAFF SOCIALIZING. CONTINUE PLAN OF CARE
[2018-07-11 08:44] VITALS: BP 155/58
--- NOTE | 2018-07-11 09:41 | NUR ---
The [facility] van and staff are here to orange picker machine operator the patient to take her back to the retirement. She is dressed, packed, and ready to go. Leo Rea is faxing the paperwork, and hard copy of the MAR and d/c order are sent with the road train driver. The patient is escorted off og the unit with our staff and theirs.
--- NOTE | 2018-07-11 15:29 | PN ---
PATIENT:ANDREY STEIN MEDICAL RECORD: [id number] LOCATION:FABIEN tSephenKassandra ADMISSION DATE: 06/25/18 PROGRESS NOTE DATE OF SERVICE: 07/10/2018 SUBJECTIVE: The patient's case was discussed with staff. She has no new complaint. OBJECTIVE: The patient has been approved for transfer back to the [facility] by the office of long-term care. She will be discharged tomorrow morning to the [facility]. Followup will be with her primary care [facility] physician. There are no symptoms that would pose a direct risk to anyone else. TRANSINT:[id number] Voice Confirmation ID: [id number] DOCUMENT ID: [id number] DARYL ZUNIGA MD at 1529 CC: [id number] DICTATION DATE: 07/10/18 1440 GIFTED TEACHER: 07/10/18 1455 DIS IN 07/11/18 [place] [id number] [place] [address]
--- NOTE | 2018-07-15 10:58 | DS ---
PATIENT:ANDREY STEIN :42 MEDICAL RECORD: [id number] DISCHARGE SUMMARY ADMISSION DATE: 06/25/18 DISCHARGE DATE: 07/11/18 IDENTIFYING DATA: The patient is 77 years old and she was admitted to the hospital on a voluntary basis from the [facility] because of homicidal threats. Apparently, the patient has been a resident at the [facility] for over a year and she became angry with her roommate and threatened to kill her. The patient denies having done this. She apparently took a sheet or pillowcase and wrapped it around her own head and threatened to kill herself as well. She admits to doing this, but says it was not a recent event, it happened months ago as though that makes it somehow less serious. The [facility] staff feels that she is a potential danger to herself and others and they are asking for evaluation and treatment. HOSPITAL COURSE: The patient was admitted to the hospital and fully evaluated from both a medical, psychological, and social standpoint. She was found to be seriously depressed and was given antidepressant medications. The patient also has a significant cluster B axis II pathology, but probably does not meet full diagnostic criteria for an actual personality disorder. Very careful analysis of her cognitive functioning was undertaken and I do not believe that she has any significant cognitive impairment and does not have a dementia. She is clearly responsible for her own actions and should be held accountable based upon standards of law and social behavior. She was treated with antidepressant medication. She did show some disorganization in her thought processes, particularly of a persecutory nature and although it was not a full-fledged psychotic symptom, she was given a low dose of an antipsychotic medication and it actually helped organize her thinking and behavior significantly in a manner consistent with someone with a primitive personality disorder often organizes with a low dose of an antipsychotic. She did show improvement through the course of her hospitalization and after some difficulties with the office of long-term care, she was finally approved for a return stay to the [facility]. She was subsequently discharged. DISCHARGE DIAGNOSES: AXIS I: Major depression, moderate severity, without psychotic features. AXIS II: Cluster B personality traits. AXIS III: Diabetes, hypertension, coronary artery disease, congestive heart failure, hypothyroidism, peripheral neuropathy, osteoarthritis, and failed right knee replacement. AXIS IV: Moderate stressors. AXIS V: Global assessment of functioning is 40. PLAN: At the time of discharge, the patient was not acutely dangerous to herself or others. She was tolerating her medications well. Her long-term prognosis is guarded. Followup will be with her primary care [facility] physician. TRANSINT:[id number] Voice Confirmation ID: [id number] DOCUMENT ID: [id number] DISCHARGE SUMMARY REPORT [id number] ANDREY STEIN PETER MD at 1058 CC: [id number] DICTATION DATE: 07/14/18 1330 PERCOLATOR OPERATOR: 07/15/18 0550 DIS IN 07/11/18 [place] [address] [place] [address]
== END 2018-07-11 09:45 | DRG 885 ==
LOC: D.PSYCH 08:54
PROVIDERS: Family Medicine; ADMIT Psychiatry & Neurology Psychiatry
DX: F33.1 Major depressive disorder, recurrent, moderate (principal); E11.42 Type 2 diabetes mellitus with diabetic polyneuropathy; I25.10 Atherosclerotic heart disease of native coronary artery without angina pectoris; I11.0 Hypertensive heart disease with heart failure; I50.9 Heart failure, unspecified; E78.5 Hyperlipidemia, unspecified; L60.2 Onychogryphosis; B35.1 Tinea unguium; G47.33 Obstructive sleep apnea (adult) (pediatric); M81.0 Age-related osteoporosis without current pathological fracture; G25.81 Restless legs syndrome; K21.9 Gastro-esophageal reflux disease without esophagitis; E55.9 Vitamin D deficiency, unspecified; F41.9 Anxiety disorder, unspecified; E66.9 Obesity, unspecified; Z68.33 Body mass index [BMI] 33.0-33.9, adult; M54.16 Radiculopathy, lumbar region

== ENCOUNTER 2019-06-11 10:21 | Emergency (ER) | payer MEDICARE, MEDICAID ==
[~2019-06-11] VITALS: Ht 162.6 cm; Wt 90.9 kg
[~2019-06-11 10:21] MED LIST changes: +ASPIRIN81 MG PO; +CALMOSEPTINE OI71 GM TOPICAL; +DESERYL50 M2 PO; +EFFEXOR37.5 MG PO; +FISH OIL 1,0001 CA1 PO; +FLORAJEN3 CAPS460 MG PO; +GABAPENTIN100 MG PO; +GEODON20 MG PO; +LIDODERM 5 %1 PATCH TRANSDERM; +LIPITOR20 MG PO; +MIRAPEX0.125 MG PO; +MYRBETRIQ50 MG PO; +OMEPRAZOLE20 M1 PO; +SYNTHROID75 MCG PO; +ULTRAM50 MG PO; +VITAMIN D3400 UNI1 PO; +VITAMIN D5000 UNIT PO; +ZOLOFT100 MG PO
[2019-06-11 10:24] VITALS: BP 120/76; Ht 162.6 cm; Wt 90.9 kg
== END 2019-06-11 11:37 | disposition home or self-care (01) ==
LOC: D.ER 10:21
DX: M25.512 Pain in left shoulder (principal); M24.412 Recurrent dislocation, left shoulder; G89.29 Other chronic pain; E11.9 Type 2 diabetes mellitus without complications; I11.0 Hypertensive heart disease with heart failure; I50.9 Heart failure, unspecified

== ENCOUNTER 2019-12-15 06:17 | Inpatient (IN) | payer MEDICARE, MEDICAID ==
[~2019-12-15] VITALS: Ht 162.6 cm; Wt 105.7 kg
--- NOTE | 2019-12-15 07:00 | NUR ---
ASSUMED CARE OF PT, A/OX3. NO C/O. VSS
[2019-12-15 07:11] LABS: BASOPHILS 0.4 % (0-2); EOSINOPHILS 6.5 % (0-7); HEMATOCRIT 43.9 % (36.0-48.0); HEMOGLOBIN 13.6 g/dL (12-16); IMMATURE GRANULOCYTES 0.6 % (0-5); LYMPHOCYTES 31.8 % (15-50); MCH 30.4 pg (26.0-34.0); MCV 98.2 fL (80.0-100.0); MEAN PLATELET VOLUME 10.9 fL (7.4-10.4); MONOCYTES 10.4 % (2-11); NEUTROPHILS 50.3 % (40-80); RBC 4.47 10x6/uL (4.00-5.40); RDW 14.5 % (11.5-14.5); WBC 8.5 10x3/uL (4.8-10.8)
[2019-12-15 07:20] LABS: PLATELET COUNT 223 10x3/uL (130-400)
[2019-12-15 07:23] LABS: CALC OSMOLALITY 282 mosm/kg (275-300); CALCIUM 9.8 mg/dL (8.5-10.1); CARBON DIOXIDE 31.2 mmol/L (21.0-32.0); CHLORIDE - SERUM 100 mmol/L (98-107); CREATININE - SERUM 1.3 mg/dL (0.6-1.3); GLUCOSE 148 mg/dL (74-106); POTASSIUM - SERUM 4.3 mmol/L (3.5-5.1); SODIUM 138 mmol/L (136-145); UREA NITROGEN 24 mg/dL (7-18); eGFR NON AFRICAN AMERICAN 42 mL/min (90-120)
[2019-12-15 07:25] LABS: APTT 30.8 SECONDS (22.8-39.4); INR 0.96 (0.85-1.17); PROTIME 12.8 SECONDS (11.6-15.0)
[2019-12-15 07:27] VITALS: BP 141/51
--- NOTE | 2019-12-15 07:39 | NUR ---
LAB AT BS: BC X2 AND LACTIC ACID DRAWN THEN ABXS INITIATED
[2019-12-15 07:41] LABS: ALBUMIN 3.6 g/dL (3.4-5.0); ALKALINE PHOSPHATASE 82 U/L (30-120); ALT (SGPT) 36 U/L (10-68); BILIRUBIN - TOTAL 0.29 mg/dL (0.2-1.3); CREATINE KINASE 174 UL (21-215); PRO BNP 86 pg/mL (0-450); PROTEIN - SERUM 7.6 g/dL (6.4-8.2)
--- NOTE | 2019-12-15 07:41 | NUR ---
ABG'S DRAWN PER RT. BASED ON RESULTS, O2 D/C'D
[2019-12-15 07:42] LABS: TROPONIN-I < 0.017 ng/mL (0.000-0.060)
[2019-12-15 07:51] VITALS: BP 125/56
[2019-12-15] MEDS ORDERED: JANUVIA25 MG PO (07:58)
[2019-12-15] MEDS ORDERED: MIRAPEX0.5 MG PO (08:02)
[2019-12-15] MEDS ORDERED: PRANDIN1 MG PO ×2 (08:03→08:07)
[2019-12-15] MEDS ORDERED: MELATONIN 3 MG1 TAB PO (08:05)
[2019-12-15] MEDS ORDERED: MYRBETRIQ25 MG PO (08:05)
[2019-12-15] MEDS ORDERED: HUMULIN R100 UNIT/1 SC (08:06)
[2019-12-15 08:14] VITALS: BP 113/62
--- NOTE | 2019-12-15 09:38 | NUR ---
REPORT TO MILTON YUNG
[2019-12-15 09:41] VITALS: BP 175/56
--- NOTE | 2019-12-15 09:41 | NUR ---
RECEIVED REPORT ON PATIENT FROM ED. PATIENT TO UNIT SOON.
--- NOTE | 2019-12-15 09:42 | NUR ---
ADMIT TO ROOM # 2111, CONDITION STABLE
--- NOTE | 2019-12-15 09:55 | NUR ---
RECEIVED PATIENT TO ROOM 2111 VIA STRETCHER FROM ED. PATIENT ALERT/ORIENTED, [place]. GLASSESS AND CELLPHONE WITH PATIENT. PATIENT RESP EVEN AND UNLABORED. ASSISTED TO TRANSFER PATIENT TO BED FROM STRETCHER. CALL LIGHT PLACED WITHIN REACH. NO DISTRESS.
--- NOTE | 2019-12-15 11:44 | NUR ---
FSBS 146. NO INSULIN PER SLIDING SCALE.
[2019-12-15 12:39] VITALS: BP 145/74; BMI 40.0
[2019-12-15 13:32] VITALS: BP 145/74
[2019-12-15 13:35] VITALS: Ht 162.6 cm; Wt 105.7 kg
[2019-12-15] MEDS ORDERED: AUGMENTIN 875-11 TAB PO (13:36)
--- NOTE | 2019-12-15 14:45 | MORECARE ---
CASE MANAGEMENT DISCHARGE SUMMARY PATIENT: ANDREY STEIN UNIT: [id number] ADM DATE: 12/15/19 AGE: 79 : 41 SEX: F ROOM/BED: D.[facility] AUTHOR: ELYSIA JEFFERSON PHYSICIAN: REFERRING PHYSICIAN: TAYO WOOD MD DATE OF SERVICE: 12/15/19 Discharge Plan Patient Name: ANDREY STEIN [facility] [facility] 1940 Planned Disposition: Nursing Facility [facility] Cert Anticipated Discharge Date: 12/15/19 Discharge Date: Expected LOS: 1 Initial Reviewer: [id number] Initial Review Date: 12/15/2019 Generated: 12/15/19 3:45 pm External Providers [facility] Next Contact Date: Service Request Date: Service Type: Resolution: Reviewer: Comments: Coverage Notice Reviewer: [email or web address] Pritesh Mir Notice Issued Date-Time: 12/15/2019 14:40 Notice Type: Patient Choice Letter Notice Delivered To: Patient Relationship to Patient: Self Chief Knowledge Officer Name: Delivery Method: HAND - Hand Delivered Ayde Days: Prior Verbal Notification: Recipient Understood Notice: Yes Recipient Signature: Yes Med Rec Note Co-signed by Attending: Coverage Notice Comment: [facility] Patient Name: ANDREY STEIN Page [id number] at 1445 All edits/amendments must be made on the electronic document DICTATION DATE: 12/15/19 1445 FIREARMS INSTRUCTOR: QUITA 12/15/19 1445 RPT#: [id number] DC DATE: STATUS: ADM IN [facility] [address] [place] [address] END OF REPORT
--- NOTE | 2019-12-15 14:55 | MORECARE ---
CASE MANAGEMENT DISCHARGE SUMMARY PATIENT: ANDREY STEIN UNIT: [id number] ADM DATE: 12/15/19 AGE: 79 : 41 SEX: F ROOM/BED: D.[facility] AUTHOR: RONNY,DOC PHYSICIAN: REFERRING PHYSICIAN: TAYO WOOD MD DATE OF SERVICE: 12/15/19 Discharge Plan Patient Name: ANDREY STEIN Facility: [facility]:[place] : 1940 Planned Disposition: Nursing Facility [facility] Cert Anticipated Discharge Date: 12/15/19 Discharge Date: Expected LOS: 1 Initial Reviewer: [email or web address] Initial Review Date: 12/15/2019 Generated: 12/15/19 3:55 pm Comments DCP- Discharge Planning Updated by [email or web address]: Fernanda Mir on 12/15/19 1:[address] Patient Name: ANDREY STEIN Admission Status: ER Accout number: [id number] Admission Date: 12-15-2019 : 1940 Admission Diagnosis: Attending: TAYO WOOD Current LOS: 1 Anticipated DC Date: 12-15-2019 Planned Disposition: Nursing Facility [facility] Cert Primary Insurance: [employer] Discharge Planning Comments: CM received discharge orders. I met with the patient to discuss discharge plans. She has lived at [facility] for 2.5 years. She states she is wheelchair dependent and is completely dependent on the staff there. I called [facility] and left a message for [employer] to return my call. I called Liset, liaison for [facility], and notified her. Liset states p/u in 30 minutes. Family has been notified by patient. She is returning to a [facility] bed. Manager Program Management: Fernanda Mir Coverage Notice Reviewer: [id number] - Fernanda Mir Notice Issued Date-Time: 12/15/2019 14:40 Notice Type: Patient Choice Letter Notice Delivered To: Patient Relationship to Patient: Self News Broadcaster Name: Delivery Method: HAND - Hand Delivered Ayde Days: Prior Verbal Notification: Recipient Understood Notice: Yes Recipient Signature: Yes Med Rec Note Co-signed by Attending: Coverage Notice Comment: [facility] Last DP export: 12/15/19 1:46 pm Patient Name: ANDREY STEIN Page [id number] at 1455 All edits/amendments must be made on the electronic document DICTATION DATE: 12/15/191454 GEOGRAPHY TEACHER: QUITA 12/15/191454 RPT#: [id number] DC DATE: STATUS: ADM IN [facility] [address] [place] [address] END OF REPORT
--- NOTE | 2019-12-15 15:02 | NUR ---
18 GAUGE IV REMOVED FROM LEFT HAND. CATHETER TIP INTACT. 20 GAUGE IV REMOVED FROM RIGHT AC. CATHETER TIP INTACT. NO BLEEDING FROM EITHER SITE. 2X2 GAUZE APPLIED TO EACH SITE AND SECURED WITH A BANDAID. PATIENT TOLERATED IV REMOVALS WELL. PATIENT IS BEING DISCHARGED BACK TO THE [facility].
--- NOTE | 2019-12-15 15:15 | NUR ---
DISCHARGE INSTRUCTIONS PROVIDED TO PATIENT AT THIS TIME. NURSING CARE TO CONTINUE AT THE [facility].
--- NOTE | 2019-12-15 15:30 | NUR ---
PATIENT LEFT UNIT VIA WHEELCHAIR WITH PAYMENT MANAGER FROM THE [facility]. PATIENT IN NO DISTRESS UPON LEAVING UNIT. REPORT CALLED TO MARCO ANTONIO AT THE [facility] [phone].
--- NOTE | 2019-12-16 09:23 | MORECARE ---
CASE MANAGEMENT DISCHARGE SUMMARY PATIENT: ANDREY STEIN UNIT: [id number] ADM DATE: 12/15/19 AGE: 79 : 41 SEX: F ROOM/BED: D.[facility] AUTHOR: RONNY,DOC PHYSICIAN: REFERRING PHYSICIAN: TAYO WOOD MD DATE OF SERVICE: 12/16/19 Discharge Plan Patient Name: ANDREY STEIN Facility[facility]:[place] : 1940 Planned Disposition: Nursing Facility [facility] Cert Anticipated Discharge Date: 12/15/19 Discharge Date: 12/15/2019 Expected LOS: 1 Initial Reviewer: [email or web address] Initial Review Date: 12/15/2019 Generated: 12/16/19 10:22 am DCP- Discharge Planning Updated by [email or web address]: Fernanda Mir on 12/15/19 1:[address] Patient Name: ANDREY STEIN Admission Status: ER Accout number: [id number] Admission Date: 12-15-2019 : 1940 Admission Diagnosis: Attending: TAYO WOOD Current LOS: 1 Anticipated DC Date: 12-15-2019 Planned Disposition: Nursing Facility [facility] Cert Primary Insurance: [employer] Discharge Planning Comments: CM received discharge orders. I met with the patient to discuss discharge plans. She has lived at [facility] for 2.5 years. She states she is wheelchair dependent and is completely dependent on the staff there. I called [facility] and left a message for Stephanie Jabari to return my call. I called Liset, liaison for [facility], and notified her. Liset states p/u in 30 minutes. Family has been notified by patient. She is returning to a manager intermediate bed. Hand Counter: Fernanda Mir Coverage Notice Reviewer: [id number] - Fernanda Mir Notice Issued Date-Time: 12/15/2019 14:40 Notice Type: Patient Choice Letter Notice Delivered To: Patient Relationship to Patient: Self Glass Cutter Helper Name: Delivery Method: HAND - Hand Delivered Ayde Days: Prior Verbal Notification: Recipient Understood Notice: Yes Recipient Signature: Yes Med Rec Note Co-signed by Attending: Coverage Notice Comment: [facility] Last DP export: 12/15/19 1:55 pm Patient Name: ANDREY STEIN Page [id number] at 0923 All edits/amendments must be made on the electronic document DICTATION DATE: 12/16/19921 NUCLEAR PHARMACIST: QUITA 12/16/19921 RPT#: [id number] DC DATE:12/15/19 STATUS: DIS IN [facility] [address] [place] [address] END OF REPORT
== END 2019-12-15 15:30 | DRG 194 ==
LOC: D.ER 06:17 → D.M2 09:38
PROVIDERS: Family Medicine; ADMIT Family Medicine; ATTEND Family Medicine
DX: J18.9 Pneumonia, unspecified organism (principal); Z68.41 Body mass index [BMI] 40.0-44.9, adult; R04.2 Hemoptysis; E03.9 Hypothyroidism, unspecified; G25.81 Restless legs syndrome; F41.8 Other specified anxiety disorders; N32.81 Overactive bladder; E66.9 Obesity, unspecified; E11.40 Type 2 diabetes mellitus with diabetic neuropathy, unspecified; I11.0 Hypertensive heart disease with heart failure; I50.9 Heart failure, unspecified

== ENCOUNTER → 2021-01-10 14:25 | Outpatient (CLI) | payer MEDICARE, MEDICAID ==
[2019-12-15 13:35] VITALS: BMI 40.0
[~2021-01-10 14:25] MED LIST changes: +AUGMENTIN 875-11 TAB PO; +HUMULIN R100 UNIT/1 SC; +JANUVIA25 MG PO; +MELATONIN 3 MG1 TAB PO; +MYRBETRIQ25 MG PO; +PRANDIN1 MG PO
[2021-01-10 14:52] LABS: BILIRUBIN NEGATIVE (NEGATIVE); KETONE NEGATIVE mg/dL (< 1+); NITRITE NEGATIVE (NEGATIVE); UROBILINOGEN NORMAL mg/dL (< 2)
== END | disposition home or self-care (01) ==
LOC: D.LABREF 14:25
PROVIDERS: ATTEND Legal Medicine
DX: N39.0 Urinary tract infection, site not specified (principal)